=== PATIENT | male | born 1985 | race African-American/Black ===

== ENCOUNTER 2022-06-23 08:48 | Inpatient (IN) | payer OTHER ==
[~2022-06-23] VITALS: Ht 185.4 cm; Wt 127.0 kg
[2022-06-23] MEDS ORDERED: ASPirin 325 MG TAB PO ONE (09:30)
[2022-06-23] MEDS ORDERED: cloNIDine HCL 0.1 MG TAB PO ONE (09:30)
[2022-06-23 09:46] LABS: Basophils # (auto) 0 10 ^3/uL (0-0.2); Basophils % (auto) 0.8 % (0.0-2.0); Eosinophils # (auto) 0.1 10 ^3/uL (0-0.8); Eosinophils % (auto) 1.7 % (0.0-7.0); Hematocrit 43.9 % (41.0-53.0); Hemoglobin 14.9 g/dL (13.5-17.5); Lymphocytes # (auto) 1.7 10 ^3/uL (0.4-5.4); Lymphocytes % (auto) 38.6 % (10.0-50.0); Mean Corpuscular Hemoglobin 29.9 pg (28.0-32.0); Monocytes # (auto) 0.2 10 ^3/uL (0-1.3); Monocytes % (auto) 5.1 % (0.0-12.0); Neutrophils # (auto) 2.3 10 ^3/uL (1.6-8.6); Neutrophils % (auto) 53.8 % (37.0-80.0); Nucleated Red Blood Cells % 0.2 %; Red Blood Cells 4.99 10^6/uL (4.5-5.90); Red Cell Distribution Width 13.4 % (11.8-14.3); White Blood Cell 4.3 10^3/uL (4.4-10.8)
[2022-06-23 10:43] LABS: Cholesterol 229 mg/dL (< 200); Triglycerides 140 mg/dL (< 150)
[2022-06-23 10:45] LABS: HDL Cholesterol 43 mg/dL (40-59); LDL Cholesterol 161 mg/dL (< 100)
[2022-06-23 11:12] LABS: Anion Gap 6 (5-15); Blood Urea Nitrogen 12 mg/dL (7-18); Carbon Dioxide 22 mmol/L (21-32); Chloride 113 mmol/L (98-107); Glucose 97 mg/dL (74-106); Potassium 3.4 mmol/L (3.5-5.1); Sodium 141 mmol/L (136-145)
[2022-06-23 11:13] LABS: Alanine Aminotransferase 26 U/L (16-61); Albumin 3.5 g/dL (3.4-5.0); Alkaline Phosphatase 85 U/L (45-117); Aspartate Aminotransferase 14 U/L (15-37); BUN/Creatinine Ratio 9.8; Bilirubin, Total 0.4 mg/dL (0.2-1.0); Calcium 8.8 mg/dL (8.5-10.1); GFR African American 86 mL/min; GFR Non-African American 71 mL/min
[2022-06-23] MEDS ORDERED: MORPHINE SULFATE INJ 2 MG/ml SYRG IV PRN ×2 (11:45)
[2022-06-23] MEDS ORDERED: NITROGLYCERIN 0.4 MG SL TAB SL PRN (11:45)
[2022-06-23] MEDS ORDERED: POTASSIUM EFFERVESENT TAB 25 MEQ PO ONE (11:45)
[2022-06-23] MEDS ORDERED: HYDROcodone-ACET 5/325MG TAB PO PRN (11:45)
[2022-06-23] MEDS ORDERED: ACETAMINOPHEN 325 MG TAB PO PRN (11:45)
[2022-06-23] MEDS ORDERED: MAGNESIUM SULFATE 1GM/100ML 100 ML IV ONE (11:45)
[2022-06-23] MEDS: SODIUM CHLORIDE 0.9% 1,000 ML IV SCH ×2 (11:45→19:45)
[2022-06-23] MEDS ORDERED: ALPRAZolam 0.5 MG TAB PO PRN (12:00)
[2022-06-23] MEDS: ATORVASTATIN 20 MG TAB PO SCH (22:00)
[2022-06-24 01:05] LABS: Amphetamine Screen, Urine NEGATIVE (NEGATIVE); Barbiturate Scree,Urine NEGATIVE (NEGATIVE); Benzodiazephine Screen, Urine NEGATIVE (NEGATIVE); Cannabinoid Screen, Urine NEGATIVE (NEGATIVE); Cocaine Screen, Urine NEGATIVE (NEGATIVE); Opiate Scree,Urine NEGATIVE (NEGATIVE); Phencyclidine Screen, Urine NEGATIVE (NEGATIVE)
[2022-06-24] MEDS: SODIUM CHLORIDE 0.9% 1,000 ML IV SCH ×3 (03:45→22:02)
[2022-06-24] MEDS: ASPirin 81 mg TAB PO SCH (09:25)
[2022-06-24] MEDS: LISINOPRIL 10 MG TAB PO SCH (09:25)
[2022-06-24] MEDS: ENOXAPARIN SOD 40 MG/0.4 ML SYRINGE SC SCH (09:32)
[2022-06-24] MEDS: ALPRAZolam 0.5 MG TAB PO PRN ×2 (09:35→19:35)
[2022-06-24] MEDS ORDERED: cloNIDine HCL 0.1 MG TAB PO PRN (09:45)
[2022-06-24] MEDS ORDERED: ALPR0.5T PO (20:05)
[2022-06-24 22:00] VITALS: BP 102/61
[2022-06-24] MEDS: ATORVASTATIN 20 MG TAB PO SCH (22:00)
[2022-06-25 05:00] VITALS: BP 119/79
[2022-06-25] MEDS: SODIUM CHLORIDE 0.9% 1,000 ML IV SCH ×3 (05:32→15:03)
[2022-06-25] MEDS ORDERED: ADENOSINE 105 MG in GIVE UN-DILUTED 0 ML IV ONE (08:30)
[2022-06-25 09:00] VITALS: BP 130/64
[2022-06-25] MEDS: ALPRAZolam 0.5 MG TAB PO PRN ×2 (09:14→18:56)
[2022-06-25] MEDS: ASPirin 81 mg TAB PO SCH (09:14)
[2022-06-25] MEDS: LISINOPRIL 10 MG TAB PO SCH (09:15)
[2022-06-25] MEDS: METOPROLOL SUCCINATE XL 50 MG TAB PO SCH (09:15)
[2022-06-25] MEDS: ENOXAPARIN SOD 40 MG/0.4 ML SYRINGE SC SCH (09:25)
[2022-06-25 13:00] VITALS: BP 104/56
[2022-06-25 16:55] VITALS: BP 130/76
[2022-06-25] MEDS: ATORVASTATIN 20 MG TAB PO SCH (21:22)
[2022-06-25 23:34] VITALS: BP 131/82
[2022-06-26] MEDS: SODIUM CHLORIDE 0.9% 1,000 ML IV SCH ×2 (03:45→11:45)
[2022-06-26 04:54] VITALS: BP 119/62
[2022-06-26 07:30] VITALS: BP 115/72
[2022-06-26 08:00] VITALS: BP 115/72
[2022-06-26] MEDS: ASPirin 81 mg TAB PO SCH (09:51)
[2022-06-26] MEDS: ENOXAPARIN SOD 40 MG/0.4 ML SYRINGE SC SCH (09:52)
[2022-06-26] MEDS: LISINOPRIL 10 MG TAB PO SCH (09:52)
[2022-06-26] MEDS: METOPROLOL SUCCINATE XL 50 MG TAB PO SCH (09:52)
[2022-06-26] MEDS: ALPRAZolam 0.5 MG TAB PO PRN (10:07)
[2022-06-26 12:00] VITALS: BP 113/70
[2022-06-26] MEDS ORDERED: ATO40T PO (12:22)
[2022-06-26] MEDS ORDERED: ASPI1TAB20 PO (12:22)
[2022-06-26] MEDS ORDERED: LISI-716 PO (12:22)
[2022-06-26] MEDS ORDERED: METO25TA5 PO (12:22)
[2022-06-26 14:04] VITALS: BP 115/72
== END 2022-06-26 15:30 | disposition home or self-care (01) | DRG 311 ==
LOC: ER 08:48 → TELE 11:38 → TELE-EAST 06-24 18:34
PROVIDERS: ADMIT Registered Nurse; ATTEND Family Medicine
DX: I24.9 Acute ischemic heart disease, unspecified (principal); E66.01 Morbid (severe) obesity due to excess calories; E78.00 Pure hypercholesterolemia, unspecified; F43.10 Post-traumatic stress disorder, unspecified; I10 Essential (primary) hypertension; R00.0 Tachycardia, unspecified; I49.9 Cardiac arrhythmia, unspecified; Z20.822 Contact with and (suspected) exposure to COVID-19; F41.9 Anxiety disorder, unspecified; Z91.199 Patient's noncompliance with other medical treatment and regimen due to unspecified reason; Z88.0 Allergy status to penicillin; Z68.36 Body mass index [BMI] 36.0-36.9, adult
CPT/HCPCS: 36415; 71046; 78452; 80053; 80061; 80307; 83036; 84443; 84484; 85025; 85379; 87426; 93005; 93017; 93306; 93886; G0378; J0153